=== PATIENT | female | born 1935 | race Caucasian/White ===

== ENCOUNTER 2021-09-18 12:17 | Emergency (ER) | payer MEDICARE, OTHER ==
[~2021-09-18] VITALS: Ht 167.6 cm; Wt 52.2 kg
[2021-09-18] MEDS ORDERED: AMLODIPINE BESYL5 MG PO (12:46)
[2021-09-18] MEDS ORDERED: ATORVASTATIN CA10 MG PO (12:46)
--- NOTE | 2021-09-21 11:42 | EKG ---
[facility] [address] [facility] [place], [place] [address] Signed Normal sinus rhythm Right bundle branch block Abnormal ECG No previous ECGs available Confirmed by RAE BAILEY MD ([id number]) on 09/21/2021 11:42:17 AM Electronically Signed By: RAE BAILEY MD 09/21/21 1142 PATIENT NAME: VELIA RAMIREZ Electrocardiogram DATE OF : 33 PHYSICIAN: RAE BAILEY MD REPORT #: [id number] REPORT IS CONFIDENTIAL AND NOT TO BE RELEASED WITHOUT AUTHORIZATION
== END 2021-09-18 14:23 | disposition home or self-care (01) ==
LOC: ED 12:17
DX: I10 Essential (primary) hypertension (principal); Z79.899 Other long term (current) drug therapy
CPT/HCPCS: 36415; 80048; 84484; 85025; 93005; 93010; 99284-25

== ENCOUNTER 2022-01-24 11:55 | Emergency (ER) | payer MEDICARE, OTHER ==
[~2022-01-24] VITALS: Ht 167.6 cm; Wt 52.2 kg
[~2022-01-24 11:55] MED LIST: AMLODIPINE BESYL5 MG PO; ATORVASTATIN CA10 MG PO
== END 2022-01-24 14:33 | disposition home or self-care (01) ==
LOC: ED 11:55
DX: I10 Essential (primary) hypertension (principal); Z79.899 Other long term (current) drug therapy
CPT/HCPCS: 36415; 80053; 85025; 99284

== ENCOUNTER 2023-05-07 19:40 | Emergency (ER) | payer MEDICARE, OTHER ==
[~2023-05-07] VITALS: Ht 167.6 cm; Wt 53.3 kg
[2023-05-07] MEDS ORDERED: AMLODIPINE BESYLATE 5 MG TAB PO ONE (21:30)
[2023-05-07 21:33] LABS: BASOPHILS 0.8 % (0-2); EOSINOPHILS 1.6 % (0-6); HEMATOCRIT 41.8 % (35.0-50.0); HEMOGLOBIN 13.8 g/dL (12.0-18.0); LYMPHOCYTES 25.7 % (24-44); MCH 30.8 (27-36); MCHC 33.1 g/dl (30-36); MCV 93.1 fl (81-99); MONOCYTES 11.5 % (0-12); NEUTROPHILS 60.4 % (39-80); PLATELET COUNT 298 K/uL (140-440); RBC 4.49 M/ul (4.3-5.7); RDW 14.1 (10.5-15.0)
[2023-05-07 21:49] LABS: ALBUMIN 3.6 g/dL (3.4-5.0); ALBUMIN/GLOBULIN RATIO 0.92 (1.1-2.4); ANION GAP 12.7 (7-21); BILIRUBIN, TOTAL 0.6 ng/dL (0.2-1.0); BUN/CREATININE RATIO 16.66 (6.0-28.6); CALCIUM 9.1 mg/dL (8.5-10.1); CREATININE, SERUM 0.9 mg/dL (0.55-1.02); POTASSIUM 3.7 mmol/L (3.5-5.1); PROTEIN, TOTAL 7.5 g/dL (6.4-8.2)
[2023-05-07 23:15] VITALS: BP 167/72
--- NOTE | 2023-05-08 11:18 | EKG ---
[facility] [address] [facility] [address] [facility] [place] [address] Signed Normal sinus rhythm Left axis deviation Low voltage QRS Incomplete right bundle branch block T wave abnormality, consider anterior ischemia Prolonged QT Abnormal ECG When compared with ECG of 18-SEP-2021 12:59, Incomplete right bundle branch block has replaced Right bundle branch block Confirmed by PAULETTE MEDEROS MD ([id number]) on 05/08/2023 11:18:42 AM Electronically Signed By: PAULETTE MEDEROS 05/08/23 1118 PATIENT NAME: ASHLEYVELIA RAE Electrocardiogram DATE OF : 33 PHYSICIAN: PAULETTE MEDEROS REPORT #: [id number] REPORT IS CONFIDENTIAL AND NOT TO BE RELEASED WITHOUT AUTHORIZATION
== END 2023-05-07 23:15 | disposition home or self-care (01) ==
LOC: ED 19:40
PROVIDERS: Internal Medicine
DX: I16.0 Hypertensive urgency (principal); I10 Essential (primary) hypertension; Z79.899 Other long term (current) drug therapy
CPT/HCPCS: 36415; 80053; 83735; 84484; 85025; 93005; 93010; 99285-25

== ENCOUNTER 2023-05-16 11:18 | Emergency (ER) | payer MEDICARE, OTHER ==
[~2023-05-16] VITALS: Ht 167.6 cm; Wt 51.8 kg
--- OUTSIDE RECORDS SUMMARY | 2023-05-16 11:23 | XMS ---
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 EKristopher VISIT COUNT ([address] [facility] TOTAL 2 NOTE: Visits indicate total known visits. 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
[2023-05-16] MEDS ORDERED: CLONIDINE HCL0.1 MG PO (12:59)
[2023-05-16 13:10] VITALS: BP 154/67
== END 2023-05-16 13:10 | disposition home or self-care (01) ==
LOC: ED 11:18
DX: I10 Essential (primary) hypertension (principal); Z79.899 Other long term (current) drug therapy
CPT/HCPCS: 99283

== ENCOUNTER 2023-08-27 11:46 | Emergency (ER) | payer MEDICARE, OTHER ==
[~2023-08-27] VITALS: Ht 167.6 cm; Wt 51.3 kg
[~2023-08-27 11:46] MED LIST changes: +CLONIDINE HCL0.1 MG PO
[2023-08-27 14:19] VITALS: BP 151/54
== END 2023-08-27 14:21 | disposition home or self-care (01) ==
LOC: ED 11:46
DX: I10 Essential (primary) hypertension (principal); Z79.899 Other long term (current) drug therapy
CPT/HCPCS: 99283

== ENCOUNTER 2023-12-12 08:50 | Emergency (ER) | payer MEDICARE, OTHER ==
[~2023-12-12] VITALS: Ht 154.9 cm; Wt 50.2 kg
[2023-12-12 09:16] LABS: BILIRUBIN, URINE NEGATIVE (negative); BLOOD/HGB, URINE NEGATIVE (Negative); KETONE, URINE NEGATIVE (Negative); LEUK ESTERASE, URINE SMALL (negative); NITRITE, URINE NEGATIVE (negative)
[2023-12-12 09:25] LABS: RED BLOOD CELLS, URINE 0-1 /hpf (0-5)
[2023-12-12 09:26] LABS: BACTERIA, URINE NONE SEEN /hpf (negative); CASTS, URINE NONE SEEN \\lpf; CRYSTALS, URINE NONE SEEN (0-1+)
[2023-12-12 09:27] LABS: COLLECTION TYPE, URINE CLEAN CATCH; REFLEX CULTURE, URINE No (No)
[2023-12-12] MEDS ORDERED: CEPHALEXIN500 M1 PO (09:39)
[2023-12-12] MEDS ORDERED: PHENAZOPYRIDINE HCL 95 MG TAB PO ONE (09:45)
[2023-12-12] MEDS ORDERED: CEPHALEXIN MONOHYDRATE 500 MG CAP PO ONE (09:45)
[2023-12-12 09:48] VITALS: BP 180/62
== END 2023-12-12 09:49 | disposition home or self-care (01) ==
LOC: ED 08:50
PROVIDERS: Emergency Medicine
DX: N30.90 Cystitis, unspecified without hematuria (principal); I10 Essential (primary) hypertension; Z79.899 Other long term (current) drug therapy
CPT/HCPCS: 81001; 87088; 99283; A9270